=== PATIENT | male | born 1950 | race African-American/Black ===

== ENCOUNTER 2022-01-07 12:12 | Emergency (ER) | payer MEDICAID, MEDICARE ==
[~2022-01-07] VITALS: Ht 172.7 cm; Wt 68.0 kg
[2022-01-07] MEDS ORDERED: MORPHINE SULFATE 4 MG/ML CPJ (NOT FOR IM USE) IV STA (12:51)
[2022-01-07] MEDS ORDERED: ONDANSETRON HCL 4MG/2ML INJ IV STA (12:51)
[2022-01-07] MEDS ORDERED: SODIUM CHLORIDE 0.9% 1,000 ML IV ONE (13:00)
[2022-01-07] MEDS ORDERED: LIDOCAINE HCL/PF 1% 10 MG/ML 5ML VIAL INFIL ONE (13:00)
[2022-01-07] MEDS ORDERED: CEFTRIAXONE 1 G PREMIX 50 ML IV ONE (14:30)
[2022-01-07] MEDS ORDERED: LEVO750T46 MT (14:30)
[2022-01-07 14:54] LABS: CLARITY URINE TURBID (CLEAR); COLOR URINE ORANGE (YELLOW); KETONES URINE NEGATIVE (NEGATIVE); LEUKOCYTE ESTERASE URINE 3+ (NEGATIVE); NITRITE URINE NEGATIVE (NEGATIVE); OCCULT BLOOD URINE 2+ (NEGATIVE); PROTEIN URINE 2+ (NEGATIVE); SPECIFIC GRAVITY URINE 1.015 (1.005-1.030); UROBILINOGEN URINE 0.2 E.U./dL (0.2-1.0)
[2022-01-07 15:19] VITALS: BP 148/97
== END 2022-01-07 15:30 | disposition home or self-care (01) ==
LOC: ER 12:12 → CANBEDREQ 14:34 → ER 15:30
DX: R33.9 Retention of urine, unspecified (principal); I49.9 Cardiac arrhythmia, unspecified
CPT/HCPCS: 71045; 81003; 87086; 93005; 96365; 96375; 99285; J0696; J2270; J2405; J3490; J7030